=== PATIENT | female | born 1945 | race Caucasian/White ===

== ENCOUNTER → 2018-11-07 | Outpatient (CLI) | payer OTHER ==
[~2018-11-07] MED LIST: ACCUNEB SO1.25 MG/1 INH; ALL DAY ALLERGY10 M3 PO; AMARYL2 MG PO; ANTIVERT25 MG PO; BAYER CHEWABLE81 MG PO; LISINOPRIL20 MG PO; MACROBID 100 M100 M1 PO; METFORMIN HCL500 MG PO; MUCINEX DM ER1 EACH PO; SINGULAIR 10 MG10 M1 PO; STIOLTO RESPIMAT4 GM IH
== END ==
LOC: M.ULTRA 08:51
DX: R94.5 Abnormal results of liver function studies (principal)

== ENCOUNTER → 2019-11-18 | Outpatient (CLI) | payer OTHER | LOC: M.ULTRA 11-11 13:00 → M.RAD 11-11 14:00 → M.ULTRA 11-12 10:00 → M.RAD 11-12 11:00 → M.ULTRA 11-13 10:00 | DX: Z12.31 Encounter for screening mammogram for malignant neoplasm of breast (principal); I70.209 Unspecified atherosclerosis of native arteries of extremities, unspecified extremity; I77.1 Stricture of artery ==

== ENCOUNTER 2021-10-12 17:48 | Observation (INO) | payer OTHER ==
[~2021-10-12] VITALS: Ht 170.2 cm; Wt 61.1 kg
[2021-10-12 17:50] VITALS: BP 155/68
[2021-10-12] MEDS ORDERED: BACLOFEN5 MG PO (18:04)
[2021-10-12] MEDS ORDERED: CRESTOR40 MG PO (18:05)
[2021-10-12] MEDS ORDERED: MUCINEX DM ER1 EACH PO (18:07)
[2021-10-12 19:17] LABS: ABSOLUTE BASOPHILS 0.1 thou/uL (0.0-0.2); ABSOLUTE LYMPHOCYTES 1.1 thou/uL (0.8-5.3); ABSOLUTE MONOCYTES 0.5 thou/uL (0.0-1.2); ABSOLUTE NEUTROPHILS 8.3 thou/uL (1.6-8.1); BASOPHILS 0.7 %; EOSINOPHILS 0.1 %; HEMATOCRIT 44.5 % (37.0-47.0); HEMOGLOBIN 14.9 gm/dL (12.0-15.0); LYMPHOCYTES 11.3 %; MCH 32.6 pg (26.0-34.0); MCHC 33.4 g/dL (28.0-37.0); MCV 97.6 fL (80.0-100.0); MONOCYTES 5.2 %; MPV 8.6 fl. (7.2-11.1); NUCLEATED RBCS 0 /100WBC; PLATELET COUNT* 218 thou/uL (150-400); POLYS 82.7 %; RBC 4.56 mil/uL (4.20-5.00); RDW-CV 13.6 % (10.5-14.5)
[2021-10-12 19:29] LABS: CALCIUM 8.7 mg/dL (8.5-10.1); CREATININE 1.1 mg/dL (0.6-1.3); POTASSIUM 4.1 mmol/L (3.5-5.1)
[2021-10-12 19:32] LABS: APTT 27.2 Seconds (25.0-31.3); PROTIME 10.1 Seconds (9.20-11.50)
[2021-10-12 19:42] LABS: ALBUMIN 2.9 g/dL (3.4-5.0); CK-MB MASS 1.1 ng/mL (<0.5-3.6); TOTAL BILIRUBIN 0.3 mg/dL (<0.1-1.0); TOTAL PROTEIN 6.8 g/dL (6.4-8.2)
[2021-10-12 22:30] VITALS: BP 157/68
[2021-10-13 02:30] VITALS: BP 155/77
[2021-10-13 06:09] VITALS: BP 91/56
--- NOTE | 2021-10-13 09:50 | EKG ---
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: CD : 1945 Requested By: Waqar Carrera Order Number: [id number] MD: Satya Miranda Measurements Intervals [place] Rate: 65 P: 5 AL: 177 QRS: 29 QRSD: 91 T: 48 QT: 425 QTc: 442 Interpretive Statements Sinus rhythm Borderline low voltage, extremity leads Compared to ECG 09/19/2017 19:43:05 No significant changes Electronically Signed On 10-13-2021 9:50:25 ROOM CLERK by Satya Miranda [email or web address] <ELECTRONICALLY SIGNED> By: Satya Miranda MD, [facility] 10/13/21 0950 1909 1909 Satya Miranda MD, [facility] /EPI
[2021-10-13 10:00] VITALS: BP 131/62
[2021-10-13 13:54] VITALS: BP 130/55
[2021-10-13 13:58] VITALS: BP 130/55
[2021-10-13 14:18] VITALS: BP 127/52
[2021-10-14 06:06] LABS: GLYCOHEMOGLOBIN (HGB A1C) 6.4 % (4.8-5.6)
== END 2021-10-13 14:28 | disposition home or self-care (01) ==
LOC: M.ERS 17:48 → M.TBA-ER 18:49
PROVIDERS: Emergency Medicine; Internal Medicine; ADMIT Internal Medicine; ATTEND Internal Medicine
DX: E11.649 Type 2 diabetes mellitus with hypoglycemia without coma (principal); G93.41 Metabolic encephalopathy; F17.200 Nicotine dependence, unspecified, uncomplicated; Z20.822 Contact with and (suspected) exposure to COVID-19; Z79.899 Other long term (current) drug therapy; Z79.4 Long term (current) use of insulin; Z79.01 Long term (current) use of anticoagulants